=== PATIENT | male | born 1975 | race African-American/Black ===

== ENCOUNTER 2023-08-13 11:26 | Emergency (ER) | payer MEDICAID, OTHER ==
[~2023-08-13] VITALS: Ht 193 cm; Wt 120.0 kg
[2023-08-13 11:30] VITALS: O2SAT 97
[2023-08-13 12:32] LABS: EOSINOPHILS % 3.2 % (0.0-5.0); HEMATOCRIT. 21.9 % (42.0-52.0); HEMOGLOBIN. 7.5 g/dL (14.0-18.0); LYMPHOCYTES % 28.3 % (20.0-50.0); MEAN CORPUSCULAR HEMOGLOBIN 30.9 pg (28.0-32.0); MEAN CORPUSCULAR HGB CONC 34.2 g/dL (31.0-37.0); MEAN CORPUSCULAR VOLUME 90.3 fL (80.0-94.0); MEAN PLATELET VOLUME 7.8 fl (7.4-10.4); MONOCYTES % 6.4 % (2.0-8.0); NEUTROPHILS % 59.1 % (40.0-76.0); PLATELET 259 x1000/uL (130-400); RED BLOOD CELL COUNT 2.42 mill/uL (4.7-6.1); RED CELL DISTRIBUTION WIDTH 17.3 % (11.6-14.6); WHITE BLOOD COUNT 5.9 x1000/uL (4.5-11.0)
[2023-08-13] MEDS: TETRACAINE 0.5% OPHTH DROPS 4ML BOTHEYE ONE (12:34)
[2023-08-13] MEDS: FLUORESCEIN SODIUM 1MG/STRIP BOTHEYE ONE (12:34)
[2023-08-13 12:46] LABS: ALANINE AMINOTRANSFERASE < 7 IU/L (10-49); ALBUMIN 3.3 g/dL (3.2-4.8); ASPARTATE AMINOTRANSFERASE 12 IU/L (<34); BILIRUBIN TOTAL 0.5 mg/dL (0.1-1.0); CALCIUM 8.4 mg/dL (8.7-10.4); CARBON DIOXIDE 22 mEq/L (21-32); CHLORIDE 107 mEq/L (98-107); GLUCOSE 144 mg/dL (70-105); POTASSIUM 4.7 mEq/L (3.5-5.1); PROTEIN TOTAL 5.8 g/dL (6.0-8.3); SODIUM 139 mEq/L (136-145); UREA NITROGEN BLOOD 66 mg/dL (9-23)
[2023-08-13 12:52] LABS: CREATININE 5.8 mg/dL (0.6-1.3)
[2023-08-13] MEDS: DORZOLAMIDE 2% OPHTH 10 ML BOTTLE LEFTEYE SCH (13:18)
[2023-08-13] MEDS: TIMOLOL MALEATE 0.5% OPHTH DROPS 5ML EACHEYE STA (13:18)
[2023-08-13] MEDS: ACETAZOLAMIDE 250MG TABLET PO SCH (13:18)
[2023-08-13] MEDS ORDERED: DORZ10DR17 OP (13:50)
[2023-08-13] MEDS ORDERED: LATA2.5D14 EACHEYE (13:50)
[2023-08-13] MEDS ORDERED: TIMO5DRO40 EACHEYE (13:50)
[2023-08-13] MEDS: PILOCARPINE HCL 2% OPHTH DROPS 15ML LEFTEYE SCH (14:00)
[2023-08-13 14:15] VITALS: BP 124/78; PULSE 68; RESP 19; TEMP 98.3
[2023-08-13] MEDS ORDERED: LATANOPROST 0.005% OPHTH DROPS 2.5ML BOTHEYE SCH (21:00)
== END 2023-08-13 14:16 | disposition home or self-care (01) ==
LOC: ER 11:26
DX: H40.212 Acute angle-closure glaucoma, left eye (principal); N28.9 Disorder of kidney and ureter, unspecified; D64.9 Anemia, unspecified; I10 Essential (primary) hypertension; E78.00 Pure hypercholesterolemia, unspecified; E11.9 Type 2 diabetes mellitus without complications; Z98.890 Other specified postprocedural states; Z98.42 Cataract extraction status, left eye; Z86.73 Personal history of transient ischemic attack (TIA), and cerebral infarction without residual deficits
CPT/HCPCS: 36415; 80053; 85025; 93005; 99284